=== PATIENT | female | born 1975 | race Caucasian/White ===

== ENCOUNTER 2023-03-10 08:22 | Day surgery (SDC) | payer OTHER ==
[2023-03-07 14:30] LABS: Absolute Lymphocytes (CBC) 1.8 K/uL (0.7-4.9); Lymphocytes % 22.1 % (15.3-44.8); MCV 92.5 fL (80-100); MPV 11.3 fL (7.6-11.3); RBC Red Blood Cell Count 4.76 M/uL (3.86-4.86)
[2023-03-07 15:02] LABS: Specific Gravity 1.017 (1.005-1.030); Urine Bacteria <20 /HPF (<20); Urine Bilirubin NEGATIVE (Negative); Urine Blood Trace (Negative); Urine Clarity Clear (Clear); Urine Color Light-Yellow (Yellow); Urine Glucose NEGATIVE (Negative); Urine Mucus Slight /HPF (None Seen); Urine Protein NEGATIVE (Negative); Urine RBC <5 /HPF (None Seen); Urine Urobilinogen Normal (Normal)
[2023-03-10] MEDS ORDERED: Ringers Lactate 1,000 ML IV ONE (08:49)
[2023-03-10] MEDS ORDERED: SCOPOLAMINE HYDROBROMIDE PATCH TD ONE (08:49)
[2023-03-10 08:58] VITALS: O2SAT 100
[2023-03-10] MEDS: CEFAZOLIN SODIUM 2 GM/VIAL ONE ×2 (10:01→10:35)
[2023-03-10] MEDS: BUPIVACAINE 0.25% PF 30 ML VIAL ONE ×3 (10:02→11:32)
[2023-03-10] MEDS ORDERED: FENTANYL CITR 100 MCG/2 ML ONE (10:11)
[2023-03-10] MEDS ORDERED: MIDAZOLAM HCL 2 MG/2 ML INJ ONE (10:12)
[2023-03-10] MEDS ORDERED: propofoL 200 MG/20 ML VIAL IV ONE (10:12)
[2023-03-10] MEDS ORDERED: ONDANSETRON 4 MG/2 ML VIAL ONE (10:12)
[2023-03-10] MEDS ORDERED: LIDOCAINE 2% MPF 5 ML VIAL ONE (10:13)
[2023-03-10] MEDS ORDERED: ROCURONIUM 50 MG/5 ML VIAL IV ONE (10:17)
[2023-03-10] MEDS ORDERED: dexAMETHasone 4 MG/ML VIAL ONE (11:10)
[2023-03-10] MEDS ORDERED: dexAMETHasone 10 MG/ML VIAL ONE (11:11)
[2023-03-10] MEDS ORDERED: KETOROLAC 30 MG/ML INJ ONE (11:55)
[2023-03-10] MEDS ORDERED: Mastisol Adhesive Liq ONE (12:13)
[2023-03-10] MEDS: FENTANYL CITR 100 MCG/2 ML ONE ×4 (12:36→12:51)
[2023-03-10] MEDS ORDERED: HYDROCODONE/APAP 5/325 MG TAB ONE (13:36)
[2023-03-10 14:15] VITALS: BP 106/69; TEMP 97
--- NOTE | 2023-03-10 15:03 | OP ---
Date of Procedure: 03/10/2023 Surgeon: Chitra Lopez MD Preoperative Diagnoses: Menorrhagia and dysmenorrhea. The patient also had frequency of urination. She has been evaluated with a CBC, hemoglobin was 13g, transvaginal ultrasound which showed a hetero geneous uterus retroflexed, unremarkable ovaries. Endometrium was sampled as IUD had failed in the p ast and there was no control either because of the removal of tubes was acceptable to the patie nt, also for treatment of dysmenorrhea in the scenario of an ablation. Endometrium preoperatively noel d no atypia or malignancy. We had suggestion of a benign endometrial polyp on the endometrial sampli ng, so consented the patient for hysteroscopy, endometrial ablation and possible polypectomy of the p olyp was noted. Then, diagnostic laparoscopy, bilateral salpingectomy, and procedures as needed if f ound as the cause for her pain. The patient had tried IUD in the past, which did not help control th e bleeding and depot medroxyprogesterone where she continually blood. She used NuvaRing immediately prior to this procedure. This has been controlling her symptoms to a degree, but for permanent relie f, she wanted to proceed with the procedure as discussed. Description Of Procedure: After informed consent was verified, she was taken back to the OR. 2 g of Ancef were given. SCDs were placed. After general anesthesia was given, she was positioned in a do rsal lithotomy position using Carlyle stirrups. Abdomen prepped with ChloraPrep, vulva, vagina and per ineum with Betadine, draped in a sterile fashion. After time-out was done, procedure was started. Speculum placed to expose the cervix. Anterior lip grasped with 2 Allis clamps. The cervix had a si gnificant descend and was down all the way to the genital hiatus or to the vaginal introitus. So, po int C was at -1 to 0 and traction was placed on the cervix with Allis clamps. Diagnostic hysteroscopy and ablation: The cervical canal was dilated to 16-Uruguayan. Diagnostic SlimL ine hysteroscope was used to traverse the cervical canal into the uterine cavity under direct vision. There were no intracavitary masses. The cavity was rinsed thoroughly of the clot and visualized. Since there was no polyp found, there was no need for a polypectomy. Started with the ablation, the cavity was measured. Cavity length was 4.5 cm. This calculated by th e direct measurement of the uterine fundus to the external os and then the cervical and itself. This was fed into the machine. Then, the NovaSure device was taken, primed and inserted into the uterine cavity and the fan was deployed. The cavity width was 2.6 cm and this was entered into the generato r. After the power setting was calculated to 64, the cavity integrity test was done with the occlude r at the external os and once this passed without any problems, the ablation cycle was started. It w as conducted for 1 minute and 40 seconds without any interruption (74 seconds). There was an excelle nt ablation. Device was undeployed in the usual fashion and diagnostic uterine manipulator was inser denis into place and Dominguez was inserted into the bladder. This area was then draped. A 1 cm infraumbilical curvilinear incision was made. Then, fascia was incised with an 11 blade, tagg ed with 0 Vicryl sutures on both ends. Peritoneum opened bluntly with my finger and then S retractor s were placed. [place] was introduced. Site of entry was checked and was unremarkable. The patient was placed in Trendelenburg position. A 5 suprapubic and left lower quadrant ports were placed under direct vision. A 0.25% Marcaine was injected at the skin and the fascia on both sides. Then, the p atient was placed in significant Trendelenburg. Uterus was visualized. There were significant adhes ions of the tubes and ovaries to the lateral wall. There was a small leiomyoma in the posterior wall of the fundus of the uterus. No other abnormalities of the peritoneum like endometriosis were noted . She had significant perihepatic adhesions in the right upper quadrant, suspicious for an old PID i nfection. Due to the presence of her pain, deemed necessary to perform a salpingo-ovariolysis. This was performed with the help of graspers and LigaSure device. The adhesions were taken down from the lateral wall, uterosacral ligament from tubes to the ovaries. There were all detached and some of the adhesions were also excised along with the tubes. The ovaries were released from the adhesion s to be mobile. Bilateral salpingectomy: The tubes were picked up in the distal aspect near the fimbriated end and L igaSure was used to take the tubes down with cautery and the cutting. Then, the entire mesosalpinx w as dissected and the tube was cut in close proximity to the cornual end without leaving any remnant. The entire tube on each side was removed and handed over for pathology staple. Myomectomy: There was a posterior subserosal leiomyoma here. There were multiple adhesions. They w ere attached from here side, deemed it necessary to remove the myoma in case even though it was small and could be degenerating and retracting adhesions. Myomectomy was performed circumferentially open ing the subserosal leiomyoma with at least 1/3 of the myoma within the uterine wall and then the rest protruding out. The top of the myoma was grasped with atraumatic grasper and taken the bottom with the help of the LigaSure in a circumferential fashion. The base of this was cauterized with the help of bipolar cautery. The specimen was handed out for permanent pathology. Thorough inspection of th e pelvic cavity showed no peritoneal implants, the adhesions were all carefully taken down and then t he pelvis was thoroughly irrigated and suctioned. Appendix was visualized and normal. Small bowel a nd large were all unremarkable mostly as well as the omentum, perihepatic adhesions as discussed abov e. Trocars were removed under direct vision. The patient was placed in a supine fashion. Then, gas was desufflated and umbilical trocar was removed. Fascia was closed with 0 Vicryl sutures and on ea ch side tied to each other and simple interrupted Monocryl sutures at all skin incisions. Manipulato r and the Dominguez were removed. Instrument, needle, and sponge counts were correct at the end of the c ase. The patient tolerated the procedure well. She will be discharged home today. She will have a 1 week and 3-month followups. SOL/MONSTER Voice ID: [id number] Report ID: [id number]
== END 2023-03-10 13:55 | disposition home or self-care (01) ==
LOC: PRE 08:22 → OR 13:55
PROVIDERS: ATTEND Obstetrics & Gynecology
PROC: 0UT74ZZ Resection of Bilateral Fallopian Tubes, Percutaneous Endoscopic Approach (ICD-10-PCS; 2023-03-10)
PROC: 0UN24ZZ Release Bilateral Ovaries, Percutaneous Endoscopic Approach (ICD-10-PCS; 2023-03-10)
PROC: 0UB94ZZ Excision of Uterus, Percutaneous Endoscopic Approach (ICD-10-PCS; 2023-03-10)
PROC: 0U5B8ZZ Destruction of Endometrium, Via Natural or Artificial Opening Endoscopic (ICD-10-PCS; principal; 2023-03-10 09:30)
DX: N92.0 Excessive and frequent menstruation with regular cycle (principal); N94.6 Dysmenorrhea, unspecified; R35.0 Frequency of micturition; D25.9 Leiomyoma of uterus, unspecified; N73.6 Female pelvic peritoneal adhesions (postinfective)
CPT/HCPCS: 58563; 58661; 58660; 58545; 85025; 81001; 36415 ×2; 86900; 86850; 84703; 86901; 88305; J2704; J1100 ×2; J2001; J2250; J3010 ×2; J2405; J7120

== ENCOUNTER 2023-05-25 02:58 | Emergency (ER) | payer OTHER ==
--- OUTSIDE RECORDS SUMMARY | 2023-05-25 03:01 | XMS REPORT | Continuity of Care Document ---
:1975 Author Organization [facility] t Address [address] [facility] [address] [place] [id number] Care Team Providers Name Role Phone Thai Love Primary Care Physician Thai Love Attending Clinician Unavailable CLAYTON_JET_Michael_Sheree Attending Clinician Unavailable GC_GCBZW_McIntire_E Attending Clinician Unavailable Radiology Attending Clinician Unavailable RADIOLOGY Attending Clinician Unavailable SUSIE URRUTIA Attending Clinician Unavailable Susie Urrutia PA-C Attending Clinician Doctor Unassigned, Vass Attending Clinician Unavailable CLAYTON_JET_Michael_Sheree Admitting Clinician Unavailable GC_GCBZW_McIntire_E Admitting Clinician Unavailable ANAT QUESADA Admitting Clinician Unavailable Payers Payer Name Policy Type Policy Number Effective Date Expiration Date S dougie [employer] (EPO) [id number] 2017 00:00:00 [employer] (POS) [id number] 2017 00:00:00 Problems Condition Condition Condition Status Onset Resolution Last Treating Co mments Source Name Details Category Date Date Treatment Clinician Date No known No known Disease Unive rs active active ity of problems problems [facility] Allergies, Adverse Reactions, Alerts Allergy Allergy Status Severity Reaction(s) Onset Inactive Treating Comm ents Source Name Type Date Date Clinician NO KNOWN Drug Active Univers ALLERGIE Class ity of S [facility] Social History Social Habit Start Date Stop Date Quantity Comments Source History SDWI University o f Alcohol Std Drinks [place] [facility] History [facility] University o f Alcohol Binge [place] [facility] History SDOH University o f Alcohol Comment [place] [facility] Gender identity Universit y of [facility] Sexual orientation Univer sity of [facility] Alcohol intake 2021-02-05 2021-02-05 Current drinker Unive rsity of 00:00:00 00:00:00 of alcohol [place] [facility] (finding) [facility] History of Social 2021-02-05 2021-02-05 Univers ity of function 00:00:00 00:00:00 [facility] Tobacco use and 2019-01-31 2019-01-31 Smokeless Universit y of exposure 00:00:00 00:00:00 tobacco non-user [facility] dical Branch History SDOH 2019-01-31 2019-01-31 3 University o f Alcohol Frequency 00:00:00 00:00:00 [place] [facility] [place] Sex Ass[birth year] At [birth year] Universit y of 00:00:00 00:00:00 [facility] Smoking Status Start Date Stop Date Source Never smoked tobacco [facility] Medications Ordered Filled Start Stop Current Ordering Indication Dosage Frequency Signature Comments Components Source Medication Medication Date Date Medication? Clinician (SIG) Name Name 2022- No [id number] 9.1mCi 9.1 Unive rs 99m-mebrofe 03-25 08-04 millicurie i ty of nannette 13:45: 13:37 , [place] injection 00 :00 Intravenou Medi ofelia 9.1 s, ONCE, 1 Branch millicurie dose, On Tue03/25/23 at 0845, Routine NUVARING Yes [id number] 1{each} Insert 1 Univers 0.12-0.015 6-17 Each into ity of mg/24 hr 00:00: vagina [place] vaginal 00 once every Medica l insert month. Branch Insert vaginally and leave in place for 3 consecutiv e weeks, then remove for 1 week. NUVARING Yes [id number] 1{each} Insert 1 Univers 0.12-0.015 6-17 Each into ity of mg/24 hr 00:00: vagina [place] vaginal 00 once every Medica l insert month. Branch Insert vaginally and leave in place for 3 consecutiv e weeks, then remove for 1 week. NUVARING Yes [id number] 1{each} Insert 1 Univers 0.12-0.015 6-17 Each into ity of mg/24 hr 00:00: vagina [place] vaginal 00 once every Medica l insert month. Branch Insert vaginally and leave in place for 3 consecutiv e weeks, then remove for 1 week. NUVARING Yes [id number] 1{each} Insert 1 Univers 0.12-0.015 6-17 Each into ity of mg/24 hr 00:00: vagina [place] vaginal 00 once every Medica l insert month. Branch Insert vaginally and leave in place for 3 consecutiv e weeks, then remove for 1 week. NUVARING Yes [id number] 1{each} Insert 1 Univers 0.12-0.015 6-17 Each into ity of mg/24 hr 00:00: vagina [place] vaginal 00 once every Medica l insert month. Branch Insert vaginally and leave in place for 3 consecutiv e weeks, then remove for 1 week. Procedures Procedure Date / Time Performing Clinician Source Performed [place] HEPATOBILIARY W 2023-03-25 15:15:00 Requisition, Paper Univer [facility] INTERVENTION [facility] US HEAD NECK 2023-03-25 13:35:00 Requisition, Paper Universit y of [facility] PATIENT FINANCIAL 2023-03-25 12:57:33 Doctor Unassigned, No [facility] POLICY Name [facility] CONSENT/REFUSAL FOR 2023-03-25 12:57:06 Doctor Unassigned, No [facility] DIAGNOSIS AND TREATMENT [facility] Medical Branch ASSIGNMENT OF BENEFITS 2023-03-25 12:56:52 Doctor Unassigned, No [facility] Branch US HEAD NECK 2021-12-23 21:55:02 Requisition, Paper Universit y [facility] ASSIGNMENT OF BENEFITS 2021-12-23 21:05:54 Doctor Unassigned, No [facility] Encounters Start End Encounter Admission Attending Care Care Encounter Source Date/Time Date/Time Type Type Clinicians Facility Department ID 2022-11-25 Outpatient Love, STLMLC [facility] [id number] Common 15:34:01 Thai [id number] [facility] 2023-05-16 2023-05-16 Outpatient GC_SWHAWPRC PRIV PRIV [id number] [facility] 00:00:00 00:00:00 _Fisher_H [id number] [facility] 2023-05-16 2023-05-16 Outpatient GC_SWHAWPRC PRIV PRIV [id number] [facility] 00:00:00 00:00:00 _Fisher_H [id number] [facility] 2023-05-10 2023-05-10 Outpatient GC_SWHAWPRC PRIV PRIV [id number] [facility] 00:00:00 00:00:00 _Fisher_H [id number] [facility] 2023-05-06 2023-05-06 Outpatient GC_SWHAWPRC PRIV PRIV [id number] [facility] 00:00:00 00:00:00 _Fisher_H [id number] [facility] 2023-05-05 2023-05-05 Outpatient GC_GCBZW_Mc PRIV PRIV [id number] [facility] 00:00:00 00:00:00 Intire_E [id number] Medic al 2023-04-01 2023-04-01 Outpatient GC_GCBZW_Mc PRIV PRIV [id number] [facility] 00:00:00 00:00:00 Intire_E [id number] Medic al 2023-04-01 2023-04-01 Outpatient GC_GCBZW_Mc PRIV PRIV [id number] [facility] 00:00:00 00:00:00 Intire_E [id number] Medic al 2023-03-25 2023-03-25 Hospital Radiology [facility] [id number] Univers 08:01:33 23:59:00 Encounter [place] [id number] ity of [place] [id number] [place] [address] [id number] [facility] 806 Branch 2023-03-25 2023-03-25 Outpatient R RADIOLOGY [facility] [id number] Univers 07:58:08 08:00:00 ity of [facility] 2023-03-25 2023-03-25 [facility] Radiology [facility] [id number] [id number] Univers 07:58:08 08:00:00 Encounter [place] [id number] ity of [place] 4.2.7.2.686 [facility] [id number] [facility] 805 Branch 2023-03-24 2023-03-24 Outpatient R RADIOLOGY [facility] [id number] Univers 00:00:00 00:00:00 ity [facility] 2023-03-17 2023-03-17 Outpatient GC_GCBZW_Mc PRIV PRIV [id number] [facility] 00:00:00 00:00:00 Intire_E [id number] Medic al 2023-03-07 2023-03-07 Outpatient GC_GCBZW_Mc PRIV PRIV [id number] [facility] 00:00:00 00:00:00 Intire_E [id number] Medic al 2023-03-07 2023-03-07 Outpatient GC_GCBZW_Mc PRIV PRIV [id number] [facility] 00:00:00 00:00:00 Intire_E [id number] Medic al 2023-03-07 2023-03-07 Outpatient GC_GCBZW_Mc PRIV PRIV [id number] [facility] 00:00:00 00:00:00 Intire_E [id number] Medic al 2023-03-03 2023-03-03 Outpatient GC_GCBZW_Mc PRIV PRIV [id number] [facility] 00:00:00 00:00:00 Intire_E [id number] Medic al 2022-02-11 2022-02-11 [facility] [id number] Univers 15:30:00 15:30:00 SUSIE [facility] 2022-01-28 2022-01-28 [facility] [id number] [id number] Univers 00:00:00 00:00:00 Susie VELAZQUEZ [id number] [facility] 4.2.7.2.686 Hugo s PROFESSIO [id number] Id dical [address] 2021-12-23 2021-12-23 Outpatient R RADIOLOGY [facility] [id number] Univers 16:06:37 23:59:00 [facility] 2021-12-23 2021-12-23 Hospital Radiology [facility] 1..840.114 [id number] Univers 16:06:37 23:59:00 Mar[facility]AZQUEZ [id number] [facility]2.7[facility].686 [facility] [id number] [facility] 806 Branch 2021-12-23 2021-12-23 Orders Doctor [place] [id number] Univers 00:00:00 00:00:00 Only Unassigned, LÓPEZ 350.1.13.10 ity of [facility] 4.2.7.2.686 Robert as [id number] [facility] 009 Branch 2021-02-05 2021-02-05 [facility] [id number] Univers 15:45:00 15:45:00 [facility] 2020-03-16 2020-03-16 Outpatient R [facility] [id number] Univers 13:40:00 13:40:00 [facility] 2020-01-31 2020-01-31 Outpatient R YANICK [facility] [id number] Univers 15:30:00 15:30:00 [facility] Results Test Description Test Time Test Comments Results Result [facility] Comments SCR MAMM 2023-02-08 BILATERAL MARTHA 16:37:00 CAD DIGITAL Name: , W/AUGMENTATION Jay Monique : 1975 Sex: F - SCR MAMM BILATERAL MARTHA CAD DIGITAL W/AUGMENTATIONBILATERAL DIGITAL SCREENING MAMMOGRAM 3D/2D WITH CAD WITH AUGMENTATION: 02/02/2023LINICAL: Asymptomatic. Digital breast tomosynthesis was performed in addition to routine CC and MLO views. Current mammographic images were evaluated by [employer] CAD (computer-aided detection) software. Comparison is made to exams dated 02/16/2022 mammogram - [facility], 03/05/2021 mammogram, and 01/10/2020 mammogram - [facility]. The tissue of both breasts is extremely dense, which lowers the sensitivity of mammography. Bilateral breast implants are stable. There is a benign calcification in the left breast. There also are benign calcifications in the right breast. No suspicious mass, architectural distortion, malignant type calcification, or lymph node abnormality detected. Breast architecture is stable compared to prior exams.IMPRESSION: BENIGNThere is no mammographic evidence of malignancy. Resume annual screening mammography in one year. (02/03/2024) Diane Choi M.D. scmonik/penrad:02/08/2023 16:37:00 Traveling Sales Executive: Sera Farmer MM RT(R)(M), [facility] ArriveBefore Mammographyletter sent: BIRADS 1-2 Normal Mammogram BI-RADS: 2 Benign SCR MAMM 2022-02-25 BILATERAL MARTHA 11:27:02 CAD DIGITAL Name: , W/AUGMENTATION Jay Monique : 1975 Sex: F - SCR MAMM BILATERAL MARTHA CAD DIGITAL W/AUGMENTATIONBILATERAL DIGITAL SCREENING MAMMOGRAM 3D/2D WITH CAD WITH AUGMENTATION: 02/16/2022LINICAL: Asymptomatic. Digital breast tomosynthesis was performed in addition to routine CC and MLO views. Current mammographic images were evaluated by [employer] CAD (computer-aided detection) software. Comparison is made to exams dated 03/05/2021 mammogram, 01/10/2020 mammogram, 12/19/2018 mammogram, and 11/30/2017 mammogram - [facility]. The tissue of both breasts is extremely dense, which lowers the sensitivity of mammography. Bilateral breast implants are stable. There is a benign calcification in the left breast. There also are benign calcifications in the right breast. No suspicious mass, architectural distortion, malignant type calcification, or lymph node abnormality detected. Breast architecture is stable compared to prior exams.IMPRESSION: BENIGNThere is no mammographic evidence of malignancy. Resume annual screening mammography in one year. (02/17/2023) Diane stoddard/penrad:02/25/2022 11:27:02 Traveling Sales Executive: Alka Ho MM, [facility] Mammographyletter sent: BIRADS 1-2 Normal Mammogram BI-RADS: 2 Benign
[2023-05-25 04:12] LABS: Urine Bacteria None Seen /HPF (<20); Urine RBC >50 /HPF (None Seen)
[2023-05-25 04:13] LABS: Urine Bilirubin NEGATIVE (Negative); Urine Blood 3+ (OVER) (Negative); Urine Clarity Extremely Turbid (Clear); Urine Color Light-Orange (Yellow); Urine Glucose NEGATIVE (Negative); Urine Protein 1+ (Negative); Urine pH 5.5 (5.0-7.0)
[2023-05-25 04:14] LABS: Urine Urobilinogen Normal (Normal)
--- NOTE | 2023-05-25 04:15 | ER ---
Nurse's Notes [facility] Name: Hermila Montoya Age: 48 yrs Sex: Female : 1975 Arrival Date: 05/25/2023 Time: 02:58 Bed 13 Private MD: Diagnosis: Urinary tract infection Presentation: 05/25 03:08 Chief complaint: Patient states: urinary urgency, frequency, blood in urine with pf1 burning with urination,onset last night. Patient stated had a UTI 3 weeks ago, completed Amoxicillin 2 weeks ago. Patient stated follows up with Dr. Rosas for Urology. 03:08 Coronavirus screen: Vaccine status: Patient reports receiving the 2nd dose of the covid pf1 vaccine. 3 doses Client denies travel out of the [place] in the last 14 days. At this time, the client does not indicate any symptoms associated with coronavirus-19. Ebola Screen: Patient negative for fever greater than or equal to 101.5 degrees Fahrenheit, and additional compatible Ebola Virus Disease symptoms. Initial Sepsis Screen: Does the patient meet any 2 criteria? No. Patient's initial sepsis screen is negative. Does the patient have a suspected source of infection? No. Patient's initial sepsis screen is negative. Risk Assessment: Do you want to hurt yourself or someone else? Patient reports no desire to harm self or others. 03:08 Method Of Arrival: Ambulatory pf1 03:08 Acuity: LIBBY 4 pf1 Historical: - Allergies: 03:22 No Known Allergies; pf1 - PMHx: 03:22 urinary urgency; pf1 - PSHx: 03:22 partial hysterectomy; uterine ablation; pf1 - Immunization history:: Adult Immunizations up to date, Client reports receiving the 2nd dose of the Covid vaccine, 3 doses Last tetanus immunization: < 10 years ago. - Social history:: Smoking status: Patient denies any tobacco usage or history of. Patient uses alcohol, occasionally. Patient/guardian denies using street drugs. Screenin:27 [facility] ED Fall Risk Assessment (Adult) History of falling in the last 3 months, pf1 including since admission No falls in past 3 months (0 pts) Confusion or Disorientation No (0 pts) Intoxicated or Sedated No (0 pts) Impaired Gait No (0 pts) Mobility Assist Device Used No (0 pt) Altered Elimination No (0 pt) Score/Fall Risk Level 0 - 2 = Low Risk Oriented to surroundings, Maintained a safe environment, Educated pt \T\ family on fall prevention, incl call for assistance when getting out of bed, Assessed \T\ reinforced patient's understanding of fall precautions, Provided non-skid footwear, Hourly rounding (assess needs \T\ fall precautionary measures) done, Used ambulatory aids as needed (educated on \T\ assisted with), Used gait belt as appropriate. Abuse screen: Denies threats or abuse. Nutritional screening: No deficits noted. Tuberculosis screening: No symptoms or risk factors identified. Assessment: 03:08 General: Appears in no apparent distress. comfortable, well groomed, well developed, pf1 Behavior is calm, cooperative, appropriate for age, quiet. 03:08 Pain: Denies pain. Neuro: No deficits noted. Level of Consciousness is awake, alert, pf1 obeys commands, Oriented to person, place, time, situation. Cardiovascular: No deficits noted. Capillary refill < 3 seconds Patient's skin is warm and dry. Respiratory: No deficits noted. Airway is patent Respiratory effort is even, unlabored, Respiratory pattern is regular, symmetrical. GI: No deficits noted. No signs and/or symptoms were reported involving the gastrointestinal system. : Reports burning with urination, urgency, urinary frequency, with blood in urine. 04:00 Reassessment: Patient appears in no apparent distress at this time. Patient and/or pf1 family updated on plan of care and expected duration. Pain level reassessed. Patient is alert, oriented x 3, equal unlabored respirations, skin warm/dry/pink. Patient states symptoms have not improved. Vital Signs: 03:08 BP 116 / 90; Pulse 77; Resp 16; Temp 98; Pulse Ox 100% on R/A; Weight 57.61 kg; Height pf1 5 ft. 5 in. ; Pain 0/10; 04:31 BP 118 / 89; Pulse 80; Resp 16; Pulse Ox 100% on R/A; Pain 0/10; pf1 03:08 Body Mass Index 21.13 (57.61 kg, 165.1 cm) pf1 03:08 Pain Scale: Adult pf1 04:31 Pain Scale: Adult pf1 ED Course: 03:00 Patient arrived in ED. mr 03:08 Damion Shah MD is Attending Physician. sp3 03:08 Patient has correct armband on for positive identification. Bed in low position. Call pf1 light in reach. 03:08 Arm band placed on left wrist. pf1 03:27 Triage completed. pf1 03:27 No provider procedures requiring assistance completed. pf1 03:29 Nakia Elias, RN is Primary Nurse. jj7 03:30 UAM Sent. bc6 04:32 Patient did not have IV access during this emergency room visit. pf1 04:32 Provided Education on: prescription . pf1 Administered Medications: No medications were administered Medication: 04:32 VIS not applicable for this client. pf1 Outcome: 04:14 Discharge ordered by MD. sp3 04:31 Discharged to home ambulatory, pf1 04:31 Condition: stable 04:31 Discharge instructions given to patient, Instructed on discharge instructions, follow up and referral plans. Demonstrated understanding of instructions, follow-up care, medications, Prescriptions given X 1, 04:32 Patient left the ED. pf1 Addendum: 05/27/2023 09:47 Addendum: Culture Results: Positive urine culture. No further action required. Bacteria e b sensitive to prescribed antibiotic. Signatures: Christine Dutton, Reg Reg mr CamachoYareli Setul, MD MD sp3 Nakia Elias, RN RN jAmanda Estrella RN RN pf1 Rubia Alford 6 Corrections: (The following items were deleted from the chart) 05/25 03:38 03:30 Test, Urine+UC.LAB.BRZ drawn and sent. bc6 EDMS 04:29 04:10 BP 161 / 72; Pulse 85bpm; Resp 20bpm; Pulse Ox 100%; jj7 jj7
--- NOTE | 2023-05-25 04:15 | EDPHYS ---
Physician Documentation [facility] Name: Hermila Montoya Age: 48 yrs Sex: Female : 1975 Arrival Date: 05/25/2023 Time: 02:58 Bed 13 Private MD: ED Physician Damion Shah HPI: 05/25 03:19 This 48 yrs old Female presents to ER via Unassigned with complaints of Urinary Problem.sp3 03:19 48-year-old female with multiple history of UTIs in the past who sees Dr. Rosas sp3 presents to the ED with urinary frequency and urgency. She does recently finished amoxicillin course several weeks ago and was okay but over the last 3 to 4 days her symptoms have resumed. She had a cystoscopy performed which demonstrated inflammation but no other intervention was required. Bilateral kidney ultrasounds were also normal in the past. Today she denies any gross hematuria, flank pain, abdominal pain, chest pain, shortness of breath, fever, or any other signs or symptoms on ROS at this time.. Historical: - Allergies: 03:22 No Known Allergies; pf1 - PMHx: 03:22 urinary urgency; pf1 - PSHx: 03:22 partial hysterectomy; uterine ablation; pf1 - Immunization history:: Adult Immunizations up to date, Client reports receiving the 2nd dose of the Covid vaccine, 3 doses Last tetanus immunization: < 10 years ago. - Social history:: Smoking status: Patient denies any tobacco usage or history of. Patient uses alcohol, occasionally. Patient/guardian denies using street drugs. ROS: 03:20 Constitutional: Negative for fever, chills, and weight loss, Eyes: Negative for injury, sp3 pain, redness, and discharge, Neck: Negative for injury, pain, and swelling, Cardiovascular: Negative for chest pain, palpitations, and edema, Respiratory: Negative for shortness of breath, cough, wheezing, and pleuritic chest pain, Abdomen/GI: Negative for abdominal pain, nausea, vomiting, diarrhea, and constipation, Back: Negative for injury and pain, MS/Extremity: Negative for injury and deformity, Skin: Negative for injury, rash, and discoloration, Neuro: Negative for headache, weakness, numbness, tingling, and seizure, Psych: Negative for depression, anxiety, suicide ideation, homicidal ideation, and hallucinations, Allergy/Immunology: Negative for hives, rash, and allergies, Endocrine: Negative for neck swelling, polydipsia, polyuria, polyphagia, and marked weight changes, Hematologic/Lymphatic: Negative for swollen nodes, abnormal bleeding, and unusual bruising, 03:20 All other systems are negative, Exam: 03:20 Constitutional: This is a well developed, well nourished patient who is awake, alert, sp3 and in no acute distress. Neck: Trachea midline, no thyromegaly or masses palpated, and no cervical lymphadenopathy. Supple, full range of motion without nuchal rigidity, or vertebral point tenderness. No Meningismus. Chest/axilla: Normal chest wall appearance and motion. Nontender with no deformity. No lesions are appreciated. Cardiovascular: Regular rate and rhythm with a normal S1 and S2. No gallops, murmurs, or rubs. Normal PMI, no JVD. No pulse deficits. Respiratory: Lungs have equal breath sounds bilaterally, clear to auscultation and percussion. No rales, rhonchi or wheezes noted. No increased work of breathing, no retractions or nasal flaring. Abdomen/GI: Soft, non-tender, with normal bowel sounds. No distension or tympany. No guarding or rebound. No evidence of tenderness throughout. Back: No spinal tenderness. No costovertebral tenderness. Full range of motion. Skin: Warm, dry with normal turgor. Normal color with no rashes, no lesions, and no evidence of cellulitis. MS/ Extremity: Pulses equal, no cyanosis. Neurovascular intact. Full, normal range of motion. Neuro: Awake and alert, GCS 15, oriented to person, place, time, and situation. Cranial nerves II-XII grossly intact. Motor strength 5/5 in all extremities. Sensory grossly intact. Cerebellar exam normal. Normal gait. Vital Signs: 03:08 BP 116 / 90; Pulse 77; Resp 16; Temp 98; Pulse Ox 100% on R/A; Weight 57.61 kg; Height pf1 5 ft. 5 in. ; Pain 0/10; 04:31 BP 118 / 89; Pulse 80; Resp 16; Pulse Ox 100% on R/A; Pain 0/10; pf1 03:08 Body Mass Index 21.13 (57.61 kg, 165.1 cm) pf1 03:08 Pain Scale: Adult pf1 04:31 Pain Scale: Adult pf1 MDM: 03:09 Patient medically screened. sp3 03:20 Data reviewed: vital signs, nurses notes, lab test result(s). ED course: 48-year-old sp3 female with dysuria and urinary frequency with complex urinary history now with probable UTI. Clinically I am not highly suspicious for pyelonephritis, kidney stone, GI pathology including enteritis, vascular pathology including aortic aneurysm or dissection, musculoskeletal pathology or any other critical process at this time. We will treat patient based on urine analysis and safely discharge patient home at that time. test was canceled secondary to patient having a partial hysterectomy and bilateral fallopian tube removal.. 04:13 ED course: UA still pending we will treat clinically with antibiotics await cultures as sp3 well.. 05/25 03:08 Order name: UAM; Complete Time: 04:15 sp3 05/25 04:17 Order name: Urine Culture EDMS Administered Medications: No medications were administered Disposition Summary: 05/25/23 04:14 Discharge Ordered Notes: Location: Home sp3 Condition: Stable sp3 Diagnosis - Urinary tract infection sp3 Followup: sp3 - With: Private Physician - When: Upon discharge from the Emergency Department - Reason: Recheck today's complaints, Continuance of care Discharge Instructions: - Discharge Summary Sheet sp3 Forms: - Medication Reconciliation Form sp3 - Thank You Letter sp3 - Antibiotic Education sp3 - Prescription Opioid Use sp3 - Patient Portal Instructions sp3 - Leadership Thank You Letter sp3 Prescriptions: - levofloxacin 500 mg Oral tablet - take 1 tablet ORAL route once daily for 7 days; 7 tablet; Refills: 0, Product sp3 Selection Permitted Signatures: Dispatcher [employer] EDMS Damion Shah MD MD sp3 Amanda You RN RN pf1 Corrections: (The following items were deleted from the chart) 03:38 03:09 Test, Urine+UC.LAB.BRZ ordered. EDMS EDMS
[2023-05-25 05:00] VITALS: BP 118/89; O2SAT 100
== END 2023-05-25 04:32 | disposition home or self-care (01) ==
LOC: ER 02:58
DX: N39.0 Urinary tract infection, site not specified (principal)
CPT/HCPCS: 81001; 87077; 87086; 87088; 87186; 99283